=== PATIENT | male | born 1975 | race Caucasian/White ===

== ENCOUNTER → 2025-04-25 | Outpatient (CLI) | payer OTHER ==
--- NOTE | 2025-04-27 17:48 | MR ---
EXAMINATION TYPE: MR shoulder RT wo con DATE OF EXAM: 04/25/2025 11:37 AM COMPARISON: None. CLINICAL INDICATION: Male, 50 years old with history of M25.511 R SHOULDER PAIN, Chronic right should er pain. IV Contrast: cc (None if empty) TECHNIQUE: Multiplanar, multisequence imaging of the right shoulder is performed without contrast. FINDINGS: There is marked osteoarthritic changes of the AC joint. There is a small subacromial spur resulting i n mild shoulder impingement. There is mild subdeltoid bursitis. There is a tiny rim rent tear of the supraspinatus anteriorly with adjacent small subchondral cysts i n the lateral humeral head. Infraspinatus is intact. There is thickening and abnormal signal intensit y within the subscapularis tendon and in the middle glenohumeral ligament. There is a tear of the long head of the biceps tendon. There is a SLAP injury to the cartilaginous labrum. IMPRESSION: 1. Marked osteoarthritis of the AC joint and mild shoulder impingement. 2. Mild deltoid bursitis. 3. Tear of the long head of the biceps tendon and SLAP injury of the cartilaginous labrum. 4. Rim rent tear of the supraspinatus tendon. 5. Marked thickening and tendinosis of the subscapularis tendon and thickening of the middle glenohum eral ligament. [facility], , 04/27/2025 5:46 PM
== END | disposition home or self-care (01) ==
LOC: RADMRIMAIN 10:20
PROVIDERS: ATTEND Orthopaedic Surgery
DX: M19.011 Primary osteoarthritis, right shoulder (principal); M25.811 Other specified joint disorders, right shoulder; M67.813 Other specified disorders of tendon, right shoulder; M75.111 Incomplete rotator cuff tear or rupture of right shoulder, not specified as traumatic